=== PATIENT | female | born 1990 | race American Indian/Alaskan Native ===

== ENCOUNTER 2019-05-25 03:40 | Emergency (ER) | payer BC, MEDICAID, OTHER ==
[2019-05-25] MEDS ORDERED: ISOPTO TEARS 0.5% OU ONE (05:33)
--- NOTE | 2019-05-25 07:45 | Emergency Department Report ---
[facility] Chief Complaint: Eye Problems Stated Complaint: EYE IRRITAITION Time Seen by Provider: 05/25/19 07:40 Duration: 2 Days Side: Right Severity: mild Symptoms: Yes Eye Itching, Yes Eye Redness, No Eye Pain, No Mucous Drainage, No Purulent Drainage, No Blurred Vision, No Preceding URI, No H/O Allergic Rhinitis, No Contact Lens Use, No Trauma, No Fever, No Headache Other History: Plan failure. Patient with right eye irritation, she states that she has no foreign object , no trauma, no loss of vision. ED Review of Systems ROS: Stated complaint: EYE IRRITAITION Other details as noted in HPI Comment: All other systems reviewed and negative ED Past Medical Hx - Past Medical History Previous Medical History?: No Hx Hypertension: No Hx Congestive Heart Failure: No Hx Diabetes: No Hx Deep Vein Thrombosis: No Hx Renal Disease: No Hx Sickle Cell Disease: No Hx Seizures: No Hx Asthma: No Hx COPD: No Hx HIV: No - Surgical History Past Surgical History?: No - Social History Smoking Status: Never Smoker Substance Use Type: None - Medications Home Medications: Home Medications Medication Instructions Recorded Confirmed Last Taken Type metroNIDAZOLE [Flagyl] 500 mg PO BID #14 tablet 03/04/15 Unknown Rx Ibuprofen [Motrin 800 MG tab] 800 mg PO Q8HR PRN #30 tablet 06/20/15 Unknown Rx methOCARBAMOL [Robaxin TAB] 500 mg PO BID #10 tab 06/20/15 Unknown Rx traMADol [Ultram 50 MG tab] 50 mg PO Q6HR PRN #14 tablet 06/20/15 Unknown Rx Ibuprofen [Motrin 800 MG tab] 800 mg PO TID PRN #30 tablet 08/13/16 Unknown Rx Lidocain2.5%/Prilocai2.5% [Emla] 5 gm TP PRN #1 tube 08/13/16 Unknown Rx Ofloxacin 0.3% [Ocuflox 0.3% opth] 1 - 2 drops OP TID #1 bottle 05/25/19 Unknown Rx [facility] Exam - Exam General: Vital signs noted. No distress. Alert and acting appropriately. Eye Exam: Right Injection, Both EOMI, Neither Chemosis, Neither Abnormal Pupil, Neither Eye Foreign Body, Neither Lid Foreign Body, Neither Mucous Discharge, Neither Purulent Discharge HEENT: No Nasal Congestion, No Pharyngeal Erythema Remainder of HEENT: Normal Lungs: Yes Clear Lung Sounds, Yes Good Air Exchange, No Wheezes, No Stridor, No Cough, No Nasal Flaring, No Retractions, No Use of Accessory Muscles ED Medical Decision Making - Medical Decision Making 28 -year-old female presents with right eye conjunctivitis ED course: discussed this with the patient. Discussed the patient will be going home on antibiotic eyedrops to apply 4-5 times a day I discussed the patient we'll give her digital strategy manager referral if needed she'll follow-up if symptoms persist. I discussed the patient is new or worsening symptoms to return to ED immediately Patient's vital signs are stable she's in no distress. Patient is vision is intact, visual acuity test performed, within normal limits. Discussed the patient to follow up with her primary care physician in 3-5 days. Critical care attestation.: If time is entered above; I have spent that time in minutes in the direct care of this critically ill patient, excluding procedure time. ED Disposition Clinical Impression: Conjunctivitis, right eye Disposition: DC- TO HOME OR SELFCARE Is pt being admited?: No Does the pt Need Aspirin: No Condition: Stable Instructions: Conjunctivitis (ED) Additional Instructions: Make sure to follow up with the primary care physician as discussed. Take all your medications as you've been prescribed. If you have any worsening symptoms or develop new symptoms please return to ED immediately. Prescriptions: Ofloxacin 0.3% [Ocuflox 0.3% opth] 1 - 2 drops OP TID #1 bottle Referrals: PRIMARY CARE, [Primary Care Provider] - 3-5 Days [facility] [Provider Group] - 3-5 Days [facility] [Outside] - 3-5 Days Forms: Work/School Release Form(ED) Time of Disposition: 07:47
[2019-05-25 07:46] VITALS: BP 123/77
== END 2019-05-25 08:00 | disposition home or self-care (01) ==
LOC: ED 03:40
DX: H10.9 Unspecified conjunctivitis (principal)
CPT/HCPCS: 99282

== ENCOUNTER 2019-09-07 07:45 | Emergency (ER) | payer SELFPAY ==
[2019-09-07 07:55] VITALS: BP 139/70
--- NOTE | 2019-09-07 08:47 | Emergency Department Report ---
ED ENT HPI - General Chief complaint: Earache Stated complaint: LEFT EAR INFECTION Time Seen by Provider: 09/07/19 08:01 Source: patient Mode of arrival: Ambulatory Limitations: No Limitations - History of Present Illness Initial comments: This is a 28 year-old female who presents to the emergency room with ear pain for 2 days. She reports muffled hearing started today. She also reports sore throat yesterday but after taking Mucinex improvement of symptoms. She denies fever, chills, cough, ottarhea, or drainage. MD complaint: ear pain (left) Onset/Timin -: days(s) Location: L ear Severity: moderate Severity scale (0 -10): 7 Quality: aching Consistency: constant Improves with: none Worsens with: eating Associated Symptoms: sore throat. denies: fever, cough, gum swelling, toothache, pain with swallowing, tinnitus, hearing loss, discharge from ear, rhinorrhea - Related Data Previous Rx's Medication Instructions Recorded Last Taken Type metroNIDAZOLE [Flagyl] 500 mg PO BID #14 tablet 03/04/15 Unknown Rx Ibuprofen [Motrin 800 MG tab] 800 mg PO Q8HR PRN #30 tablet 06/20/15 Unknown Rx methOCARBAMOL [Robaxin TAB] 500 mg PO BID #10 tab 06/20/15 Unknown Rx traMADol [Ultram 50 MG tab] 50 mg PO Q6HR PRN #14 tablet 06/20/15 Unknown Rx Ibuprofen [Motrin 800 MG tab] 800 mg PO TID PRN #30 tablet 08/13/16 Unknown Rx Lidocain2.5%/Prilocai2.5% [Emla] 5 gm TP PRN #1 tube 08/13/16 Unknown Rx Ofloxacin 0.3% [Ocuflox 0.3% opth] 1 - 2 drops OP TID #1 bottle 05/25/19 Unknown Rx Amoxicillin [Trimox CAP] 500 mg PO BID #20 capsule 09/07/19 Unknown Rx Allergies Allergy/AdvReac Type Severity Reaction Status Date / Time No Known Allergies Allergy Verified 03/04/15 12:00 ED Dental HPI - General Chief complaint: Earache Stated complaint: LEFT EAR INFECTION Time Seen by Provider: 09/07/19 08:01 Source: patient Mode of arrival: Ambulatory Limitations: No Limitations - Related Data Previous Rx's Medication Instructions Recorded Last Taken Type metroNIDAZOLE [Flagyl] 500 mg PO BID #14 tablet 03/04/15 Unknown Rx Ibuprofen [Motrin 800 MG tab] 800 mg PO Q8HR PRN #30 tablet 06/20/15 Unknown Rx methOCARBAMOL [Robaxin TAB] 500 mg PO BID #10 tab 06/20/15 Unknown Rx traMADol [Ultram 50 MG tab] 50 mg PO Q6HR PRN #14 tablet 06/20/15 Unknown Rx Ibuprofen [Motrin 800 MG tab] 800 mg PO TID PRN #30 tablet 08/13/16 Unknown Rx Lidocain2.5%/Prilocai2.5% [Emla] 5 gm TP PRN #1 tube 08/13/16 Unknown Rx Ofloxacin 0.3% [Ocuflox 0.3% opth] 1 - 2 drops OP TID #1 bottle 05/25/19 Unknown Rx Amoxicillin [Trimox CAP] 500 mg PO BID #20 capsule 09/07/19 Unknown Rx Allergies Allergy/AdvReac Type Severity Reaction Status Date / Time No Known Allergies Allergy Verified 03/04/15 12:00 ED Review of Systems ROS: Stated complaint: LEFT EAR INFECTION Other details as noted in HPI Constitutional: denies: chills, fever ENT: ear pain (left). denies: throat pain Respiratory: denies: cough, shortness of breath, wheezing Cardiovascular: denies: chest pain, palpitations Gastrointestinal: denies: abdominal pain, nausea, diarrhea Musculoskeletal: denies: back pain, joint swelling, arthralgia, myalgia Skin: denies: rash, lesions Neurological: denies: headache, weakness, paresthesias Psychiatric: denies: anxiety, depression ED Past Medical Hx - Past Medical History Previous Medical History?: No Hx Hypertension: No Hx Congestive Heart Failure: No Hx Diabetes: No Hx Deep Vein Thrombosis: No Hx Renal Disease: No Hx Sickle Cell Disease: No Hx Seizures: No Hx Asthma: No Hx COPD: No Hx HIV: No - Surgical History Past Surgical History?: No - Social History Smoking Status: Former Smoker Substance Use Type: Alcohol - Medications Home Medications: Home Medications Medication Instructions Recorded Confirmed Last Taken Type metroNIDAZOLE [Flagyl] 500 mg PO BID #14 tablet 03/04/15 Unknown Rx Ibuprofen [Motrin 800 MG tab] 800 mg PO Q8HR PRN #30 tablet 06/20/15 Unknown Rx methOCARBAMOL [Robaxin TAB] 500 mg PO BID #10 tab 06/20/15 Unknown Rx traMADol [Ultram 50 MG tab] 50 mg PO Q6HR PRN #14 tablet 06/20/15 Unknown Rx Ibuprofen [Motrin 800 MG tab] 800 mg PO TID PRN #30 tablet 08/13/16 Unknown Rx Lidocain2.5%/Prilocai2.5% [Emla] 5 gm TP PRN #1 tube 08/13/16 Unknown Rx Ofloxacin 0.3% [Ocuflox 0.3% opth] 1 - 2 drops OP TID #1 bottle 05/25/19 Unknown Rx Amoxicillin [Trimox CAP] 500 mg PO BID #20 capsule 09/07/19 Unknown Rx ED Physical Exam - General Limitations: No Limitations General appearance: alert, in no apparent distress - ENT ENT exam: Present: normal orophraynx, mucous membranes moist, other (turbinates mildly congested with clear discharge). Absent: TM's normal bilaterally (er ythematous and bulging right TM, tragus tenderness, left TM normal) - Respiratory Respiratory exam: Present: normal lung sounds bilaterally. Absent: respiratory distress - Cardiovascular Cardiovascular Exam: Present: regular rate, normal rhythm. Absent: systolic murmur, diastolic murmur, rubs, gallop - Neurological Exam Neurological exam: Present: alert, oriented X3 - Psychiatric Psychiatric exam: Present: normal affect, normal mood - Skin Skin exam: Present: warm, dry, intact, normal color. Absent: rash ED Course Vital Signs 09/07/19 07:52 Temperature 99.2 F Pulse Rate 82 Respiratory 18 Rate Blood Pressure 139/70 O2 Sat by Pulse 97 Oximetry ED Medical Decision Making - Medical Decision Making Patient is stable and was examined by me. Vitals normal. Physical assessment susceptible of otitis media of right ear. Start amoxicillin, Tylenol or ibuprofen for pain. Discussed plan with patient and she agreed with plan. Discharged home in stable condition. Follow up with PCP in 24-72 hours. Critical care attestation.: If time is entered above; I have spent that time in minutes in the direct care of this critically ill patient, excluding procedure time. ED Disposition Clinical Impression: Otalgia of right ear Otitis media Qualifiers: Otitis media type: suppurative Chronicity: acute Laterality: right Recurrence: non-recurrent Spontaneous tympanic membrane rupture: without spontaneous rupture Qualified Code(s): H66.001 - Acute suppurative otitis media without spontaneous rupture of ear drum, right ear Disposition: - TO HOME OR SELFCARE Is pt being admited?: No Condition: Stable Instructions: Otitis Media (ED) Additional Instructions: Give Tylenol or ibuprofen for pain every 6-8 hours. Take antibiotics as prescribed to avoid recurrence of the ear infection. Avoid high altitudes, may worsen the pain during ear infection. If symptoms do not improve within 2 to 3 days, then follow up with Coal Gasification Technician. Prescriptions: Amoxicillin [Trimox CAP] 500 mg PO BID #20 capsule Referrals: [facility] [Outside] - 3-5 Days [facility] [Outside] - 3-5 Days [facility] [Outside] - 3-5 Days Forms: Work/School Release Form(ED) Time of Disposition: 08:50
== END 2019-09-07 09:05 | disposition home or self-care (01) ==
LOC: ED 07:45
DX: H66.91 Otitis media, unspecified, right ear (principal); Z87.891 Personal history of nicotine dependence; Z79.899 Other long term (current) drug therapy